=== PATIENT | male | born 2000 | race African-American/Black ===

== ENCOUNTER 2021-10-29 13:13 | Inpatient (IN) ==
[2021-10-29] MEDS ORDERED: NALOXONE 0.4 MG/ML VIAL ONE ×3 (13:20→14:29)
[2021-10-29] MEDS ORDERED: NALOXONE 0.4 MG/ML VIAL IV STA ×2 (14:25→16:23)
[2021-10-29 14:53] LABS: Basophils # 0.1 10*3/uL (0.0-0.2); Basophils % 0.3 % (0.0-0.8); Eosinophils % 0.1 % (0.00-10.9); Hematocrit 43.2 VOL% (42.0-52.0); Hemoglobin 13.5 GM/DL (14.0-18.0); Immature Granulocytes % 1.1 %; Lymphocytes # 1.6 10*3/uL (1.4-4.0); Lymphocytes % 5.8 % (21.2-54.2); Mean Corpuscular HGB Conc 31.3 GM/DL (32-36); Mean Corpuscular Volume 95.2 FL (87-102); Mean Platelet Volume 10.2 FL (9.6-12.0); Monocytes % 8.2 % (1.7-12.7); Neutrophils % 84.5 % (38.7-73.9); Platelet Count 257 T/CUMM (130-400); Red Blood Count 4.54 MC/CUMM (3.8-5.5); Red Cell Distribution Width 13.3 % (9.3-17.3); White Blood Count 27.7 T/CUMM (4-12)
[2021-10-29 15:03] LABS: Barbiturates Screen,Urine Negative (Negative); Benzodiazepines Screen,Urine Negative (Negative); Cannabinoid Screen,Urine Positive (Negative); Opiate Screen,Urine Negative (Negative); Phencyclidine Screen,Urine Negative (Negative)
[2021-10-29 15:11] LABS: Alanine Aminotransferase 28 U/L (16-61); Albumin 4.1 G/DL (3.4-5.0); Alkaline Phosphatase 53 U/L (45-117); Aspartate Amino Transferase 26 U/L (0-37); Bilirubin,Total < 0.39 MG/DL (0.20-1.00); Blood Urea Nitrogen 12 MG/DL (7-18); Calcium 8.9 MG/DL (8.5-10.1); Carbon Dioxide 29 MMOL/L (21-32); Estimated Glom Filtration Rate 127 ML/MIN; Glucose 125 MG/DL (74-106); Osmolality,Calculated 281.3 MOS/KG (273-304); Potassium 4.3 MMOL/L (3.5-5.1); Sodium 141 MMOL/L (136-145); Total Protein 7.9 G/DL (6.4-8.2)
[2021-10-29 15:17] LABS: Salicylate < 2.8 MG/DL (2.8-20)
[2021-10-29] MEDS ORDERED: levETIRAcetam 500 MG/5 ML VIAL IV ONE ×2 (15:17→15:18)
[2021-10-29 15:19] LABS: Acetaminophen < 2.0 UG/ML (10-30)
[2021-10-29] MEDS ORDERED: ETOMIDATE 20 MG/10 ML VIAL IV STA (15:23)
[2021-10-29] MEDS ORDERED: ROCURONIUM 100 MG/10 ML VIAL IV STA (15:23)
[2021-10-29] MEDS ORDERED: METOPROLOL TARTRATE 5 MG/5 ML VIAL IV ONE (15:27)
[2021-10-29] MEDS ORDERED: METOPROLOL TARTRATE 5 MG/5 ML VIAL IV STA (15:28)
[2021-10-29 15:30] LABS: Band Neutrophils 7 % (0-10); Lymphocytes 6 % (20-55); Metamyelocytes 1 %; Segmented Neutrophils 80 % (50-85); Total Cells Counted 100
[2021-10-29 15:31] LABS: Atypical Lymphocytes Few; Platelet Estimate Normal; Polychromasia Slight
[2021-10-29] MEDS ORDERED: ETOMIDATE 20 MG/10 ML VIAL IV ONE (15:33)
[2021-10-29] MEDS ORDERED: ROCURONIUM 100 MG/10 ML VIAL IV ONE (15:34)
[2021-10-29 16:03] LABS: ABG Base Excess -3.2 MMOL/L (-2.5-2.5); ABG HCO3 28.4 MMOL/L (20-26); ABG PO2 196.5 MM HG (80-95)
[2021-10-29 16:05] LABS: ABG PCO2 87.4 MM HG (35-48); ABG PH 7.129 (7.35-7.45)
[2021-10-29] MEDS ORDERED: ONDANSETRON 4 MG/2 ML VIAL IV PRN (17:18)
[2021-10-29] MEDS ORDERED: ALBUTEROL 2.5 MG/3 ML NEB RESP TX PRN (17:18)
[2021-10-29] MEDS: ENOXAPARIN 40 MG/0.4 ML SYRINGE SUBCUT SCH (18:10)
[2021-10-29] MEDS: SODIUM CHLORIDE 0.9% 1,000 ML IV SCH (18:15)
[2021-10-29] MEDS: PANTOPRAZOLE 40 MG VIAL IV SCH (18:15)
[2021-10-29] MEDS ORDERED: MIDAZOLAM 100 MG in SODIUM CHLORIDE 0.9% 80 ML IV PRN (18:20)
[2021-10-29 18:44] VITALS: BP 115/76
[2021-10-30] MEDS: SODIUM CHLORIDE 0.9% 1,000 ML IV SCH ×5 (02:34→20:49)
[2021-10-30 04:52] LABS: ABG Base Excess 4.4 MMOL/L (-2.5-2.5); ABG HCO3 28.4 MMOL/L (20-26); ABG Oxygen Saturation 99.7 % (95-100); ABG PCO2 54.1 MM HG (35-48); ABG PH 7.367 (7.35-7.45); ABG TCO2 27.6 MMOL/L (23-27)
[2021-10-30 05:03] LABS: Amorphous Crystals,Urine Occasional /HPF (Few); Bilirubin,Urine Negative (Negative); Blood, Urine Large mg/dL (Negative); Glucose,Urine (UA) Negative (Negative); Ketones,Urine Negative (Negative); Mucus,Urine Many /LPF (Occasional); Nitrite,Urine Negative (Negative); Protein,Urine 30 MG/DL; RBC,Urine 94 /HPF (0-4); Squamous Epithelial Cell,Urine Occasional /HPF (0-10); Urine Appearance CLOUDY (Clear); Urine Color Yellow (Yellow); Urine Specific Gravity 1.027 (1.001-1.035); Urine Urobilinogen < 2.0 EU/DL (<2.0)
[2021-10-30 05:31] LABS: Basophils % 0.4 % (0.0-0.8); Eosinophils % 0.4 % (0.00-10.9); Hemoglobin 11.6 GM/DL (14.0-18.0); Immature Granulocytes % 0.4 %; Immature Granulocytes Absolute 0.04 #; Lymphocytes # 2.1 10*3/uL (1.4-4.0); Lymphocytes % 18.4 % (21.2-54.2); Mean Corpuscular HGB Conc 31.4 GM/DL (32-36); Mean Corpuscular Volume 94.9 FL (87-102); Mean Platelet Volume 10.3 FL (9.6-12.0); Monocytes % 9.3 % (1.7-12.7); Neutrophils % 71.1 % (38.7-73.9); Platelet Count 172 T/CUMM (130-400); Red Cell Distribution Width 13.5 % (9.3-17.3); White Blood Count 11.3 T/CUMM (4-12)
[2021-10-30 05:52] LABS: Albumin 3.1 G/DL (3.4-5.0); Bilirubin,Total 0.8 MG/DL (0.20-1.00); Calcium 8.7 MG/DL (8.5-10.1); Osmolality,Calculated 282.3 MOS/KG (273-304); Potassium 3.8 MMOL/L (3.5-5.1); Total Protein 6.4 G/DL (6.4-8.2)
[2021-10-30] MEDS: ENOXAPARIN 40 MG/0.4 ML SYRINGE SUBCUT SCH (18:08)
[2021-10-30] MEDS: PANTOPRAZOLE 40 MG VIAL IV SCH (18:08)
[2021-10-31] MEDS: SODIUM CHLORIDE 0.9% 1,000 ML IV SCH ×2 (05:02→10:37)
[2021-10-31 06:03] LABS: Basophils % 0.6 % (0.0-0.8); Eosinophils # 0.1 10*3/uL (0.0-0.87); Eosinophils % 1.8 % (0.00-10.9); Hematocrit 40.8 VOL% (42.0-52.0); Hemoglobin 13.2 GM/DL (14.0-18.0); Immature Granulocytes % 0.1 %; Immature Granulocytes Absolute 0.01 #; Lymphocytes # 1.5 10*3/uL (1.4-4.0); Lymphocytes % 22.8 % (21.2-54.2); Mean Corpuscular HGB Conc 32.4 GM/DL (32-36); Mean Corpuscular Volume 92.9 FL (87-102); Mean Platelet Volume 10.7 FL (9.6-12.0); Monocytes % 8.6 % (1.7-12.7); Neutrophils % 66.1 % (38.7-73.9); Platelet Count 163 T/CUMM (130-400); Red Blood Count 4.39 MC/CUMM (3.8-5.5); Red Cell Distribution Width 12.4 % (9.3-17.3); White Blood Count 6.7 T/CUMM (4-12)
[2021-10-31 06:25] LABS: Osmolality,Calculated 267.1 MOS/KG (273-304); Potassium 3.8 MMOL/L (3.5-5.1)
[2021-10-31] MEDS ORDERED: IBUPROFEN 600 MG TABLET PO PRN (13:07)
== END 2021-10-31 15:40 | disposition home or self-care (01) | DRG 917 ==
LOC: EDUNIT# → EDBD → N.ED 13:13 → N.EDINP 17:18 → SUATTDRO 17:18 → N.ICU 18:59
PROVIDERS: ADMIT Internal Medicine; ATTEND Family Medicine